=== PATIENT | male | born 1960 | race Caucasian/White ===

== ENCOUNTER 2019-12-04 15:24 | Emergency (ER) | payer OTHER, SELFPAY ==
[2019-12-04 15:28] VITALS: BP 148/94; PULSE 73; RESP 20; TEMP 36.6; O2SAT 96; BMI 27.6
--- NOTE | 2019-12-04 15:31 | XRR_ITS ---
PROCEDURE INFORMATION: Exam: XR Left Shoulder Exam date and time: 12/04/2019 3:48 PM Age: 59 years old Clinical indication: Injury or trauma; Injury history: Kicked in shoulder by cow; Initial encounter; Blunt trauma (contusions or hematomas; Left; Injury date: 12/04/19; Additional info: Left shoulder injury TECHNIQUE: Imaging protocol: XR Left shoulder. Views: 2 or more views. COMPARISON: No relevant prior studies available. FINDINGS: Bones/joints: There is severe degenerative changes of the acromioclavicular joint with a small osteochondral body along the superior aspect of the joint. Postoperative changes in the cervical spine with moderate to severe degenerative changes in the cervical and thoracic spine are noted. There are moderate degenerative changes of the glenohumeral joint. There is no acute fracture or dislocation. The acromioclavicular joint alignment is appropriate. The subacromial joint space is well-preserved. The glenohumeral joint is unremarkable. The visualized ribs are intact. Lungs: The visualized lung apex is clear. Soft tissues: No calcific tendinopathy. XR/XR shoulder LT min 2V* [id number] IMPRESSION: No acute bony abnormality. Degenerative changes are noted as above.
--- NOTE | 2019-12-04 16:55 | W.ED.EXTPRO ---
HPI - Extremity Problem General: Chief complaint: Extremity Injury, Upper Stated complaint: shoulder pain Time Seen by Provider: 12/04/19 16:29 History of Present Illness: HPI Narrative: Patient is a 59-year-old male comes to the ED with left shoulder pain. 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 He is currently having 10 out of 10 left shoulder pain. He is able to move shoulder fully but he is having some pain with range of motion. Associated symptoms: Deny chest pain, fever(s) or rash Review of Systems Const: Denies: fever(s), chills or fatigue Eyes: Denies: change in vision or eye discomfort ENMT: Denies: throat pain, odynophagia, nasal discharge or nasal congestion Card: Denies: chest pain, palpitations, edema, swelling of feet/ankles, dyspnea on exertion or orthopnea Resp: Denies: dyspnea, productive cough or non-productive cough GI: Denies: abdominal pain, nausea, vomiting, diarrhea, constipation or hematochezia : Denies: flank pain, difficulty urinating, dysuria or hematuria Musc: Reports: extremity pain (Left shoulder pain); Denies: neck pain, back pain or extremity swelling Skin/Breast: Denies: rash or new lesions Neuro: Denies: headache(s), numbness in extremities or weakness in extremities Physical Exam Const: COMMON NORMALS: patient oriented x3 and alert GENERAL APPEARANCE: cooperative HENMT: COMMON NORMALS: normocephalic HEAD & SCALP: normocephalic MOUTH: Normal oral and palatal mucosa present THROAT: posterior oropharynx normal and uvula midline Neck/C-Spine: COMMON NORMALS: supple GENERAL: Yes normal visual inspection Resp: COMMON NORMALS: normal respiratory effort, No retractions, No use of accessory muscles and clear to auscultation bilaterally AUSCULTATION: clear to auscultation bilaterally Cardio: COMMON NORMALS: regular rate, regular rhythm, S1 normal heart sound present, S2 normal heart sound present, No gallops present (Cardio), No clicks present (Cardio), No murmurs present (Cardio) and Peripheral pulses 2+ throughout RATE: regular rate RHYTHM: regular rhythm HEART SOUNDS: S1 normal heart sound present and S2 normal heart sound present PERIPHERAL PULSES: Peripheral pulses 2+ throughout GI: COMMON NORMALS: Normal to inspection, nondistended, normoactive bowel sounds present, Soft to palpation, non-tender and no masses PALPATION: Yes Soft to palpation : COMMON NORMALS: Yes no CVA tenderness BLADDER/KIDNEY EXAM: Yes no CVA tenderness Back/Pelvis: COMMON NORMALS: no CVA tenderness Extremity: GENERAL: Yes normal exam except as noted LEFT UPPER EXTREMITY: Yes shoulder joint Left shoulder joint: Yes inspection (No visual deformity seen. No no edema present.), Yes palpation (Tenderness over deltoid muscle), Yes ROM (full with some pain) and Yes neurovascular exam (intact) Neuro: COMMON NORMALS: patient oriented x3 and moves all extremities SENSORIUM/ORIENTATION: Yes alert Skin: COMMON NORMALS: no rashes or lesions noted GENERAL SKIN EXAM: no rashes or lesions noted and dry skin Course Vital Signs: Vital signs: Vital Signs Temperature 97.8 F 12/04/19 15:28 Pulse Rate 68 12/04/19 17:21 Respiratory Rate 14 12/04/19 17:21 Blood Pressure 148/92 12/04/19 17:21 Pulse Oximetry 97 12/04/19 17:21 MDM - Extremity (Nontraumatic) MDM Narrative: Medical decision making narrative: Patient is a 59-year-old male who comes to the ED with left shoulder pain. Patient had tenderness upon palpation of the deltoid muscle of the left arm/ shoulder with no visible deformities. X-ray of left shoulder showed no acute findings or fractures, but does show some degenerative joint changes. Patient diagnosed with contusion discharged. Follow-up with PCP in 5 to 7 days for reevaluation. Apply ice and take [id number] ibuprofen or Tylenol for pain. Patient understood and agreed with plan. Imaging Data^: Xray Ortho: Attestation: I personally reviewed and interpreted this imaging study as follows: Radiologist's impression: [address] [place] [address] XRay Report Signed Patient: Aren Perla Unit #: [id number] : 1960 Age/Sex: 59 / M ADM Date: 12/04/19 Loc: ER Room/Bed: Attending Dr: Ordering Provider/Ordering MD: Hilda Pruitt DO Date of Service: 12/04/19 Procedure(s): XR shoulder LT min 2V* [id number] Accession Number(s): [id number] Report Number: [id number] PROCEDURE INFORMATION: Exam: XR Left Shoulder Exam date and time: 12/04/2019 3:48 PM Age: 59 years old Clinical indication: Injury or trauma; Injury history: Kicked in shoulder by cow; Initial encounter; Blunt trauma (contusions or hematomas; Left; Injury date: 12/04/19; Additional info: Left shoulder injury TECHNIQUE: Imaging protocol: XR Left shoulder. Views: 2 or more views. COMPARISON: No relevant prior studies available. FINDINGS: Bones/joints: There is severe degenerative changes of the acromioclavicular joint with a small osteochondral body along the superior aspect of the joint. Postoperative changes in the cervical spine with moderate to severe degenerative changes in the cervical and thoracic spine are noted. There are moderate degenerative changes of the glenohumeral joint. There is no acute fracture or dislocation. The acromioclavicular joint alignment is appropriate. The subacromial joint space is well-preserved. The glenohumeral joint is unremarkable. The visualized ribs are intact. Lungs: The visualized lung apex is clear. Soft tissues: No calcific tendinopathy. XR/XR shoulder LT min 2V* [id number] IMPRESSION: No acute bony abnormality. Degenerative changes are noted as above. Dictated By: Gloria Edwards Signed By: Gloria Edwards Signed Date/Time: 12/04/191623 DD/ 1623 Discharge Plan Discharge Patient Disposition: Home Clinical Impression: Contusion Qualifiers: Encounter type: initial encounter Contusion area: shoulder Laterality: left Qualified Code(s): S40.012A - Contusion of left shoulder, initial encounter Condition: Stable Discharge Orders: Discharge Order (Routine); Ordered 12/04/19 Ordered By: Khoa Grady Referrals: Alena Mcguire APN [Primary Care Provider] - Discharge Diet: Regular Discharge Activity: Increase activity as tolerated Patient Instructions: Contusion in Adults (ED) Activity Restrictions/Additional Instructions: Follow-up with medical provider as directed in 5-7 days. Take ibuprofen and or tylenol for pain. Apply ice and rest left arm. Return to the ER or your medical provider if condition worsens. Please read and understand discharge instructions. If any questions, please ask. 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
[2019-12-04] MEDS: HYDROcodone-acetaminophen 7.5-325 mg Tablet 1 TAB PO (17:13)
[2019-12-04 17:21] VITALS: BP 148/92; PULSE 68; RESP 14; O2SAT 97
== END 2019-12-04 17:21 | disposition home or self-care (01) ==
PROVIDERS: Emergency Provider Physician Assistant; PCP Nurse Practitioner Family
DX: S40.012A Contusion of left shoulder, initial encounter (principal); W20.8XXA Other cause of strike by thrown, projected or falling object, initial encounter
CPT/HCPCS: 12345; 73030; 99281; 99283

== ENCOUNTER 2022-12-19 12:21 | Emergency (ER) | payer OTHER, SELFPAY ==
[2022-12-19 12:35] VITALS: BP 151/78; PULSE 66; RESP 16; TEMP 37.2; O2SAT 96; BMI 28.7
--- NOTE | 2022-12-19 12:58 | ED_ITS ---
HPI - Extremity Problem General: Chief complaint: Extremity Injury, Lower Stated complaint: Injurd ankle Time Seen by Provider: 12/19/22 12:47 Source: patient and family Mode of arrival: wheelchair Limitations: no limitations History of Present Illness: Patient presents to the emergency department with left ankle pain and swelling. He was out working at 3 AM this morning and fell in a hole and twisted his ankle. He also fell against his left shoulder. He did not hit his head or suffer a loss of consciousness. He denies pain or discomfort anywhere else. There was no syncope or prodrome it was a simple ground-level fall. He has had a prior left knee replacement but denies any hip or knee pain at this time. 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 MD Complaint: extremity pain Pain Consistency: constant Location: left and lower extremity Exacerbating factors: weight bearing Associated symptoms: Deny chest pain or fever(s) Review of Systems Const: Denies: fever(s) or chills Eyes: Denies: change in vision Card: Denies: chest pain, palpitations, syncope or pre-syncope GI: Denies: nausea, vomiting or diarrhea : Denies: flank pain, difficulty urinating or dysuria Musc: Reports: extremity pain and extremity swelling; Denies: neck pain or back pain Neuro: Denies: headache(s), numbness in extremities or weakness in extremities Physical Exam Narrative: EXAM NARRATIVE: Alert and in no active discomfort and less examined in his left lower extremity. Able to converse in complete and fluent sentences. Const: COMMON NORMALS: no acute distress, average body habitus, patient oriented x3 and alert GENERAL APPEARANCE: cooperative HENMT: COMMON NORMALS: normocephalic, atraumatic, moist oral mucous membranes and oropharynx normal HEAD & SCALP: normocephalic and atraumatic Eye: COMMON NORMALS: Equal, round and reactive pupils present, EOMs intact bilaterally and conjunctivae normal CONJUNCTIVA: Yes conjunctivae normal PUPIL: Yes Equal, round and reactive pupils present Neck/C-Spine: COMMON NORMALS: full ROM CERVICAL SPINE: Yes cervical ROM normal, No Cervical spine tenderness, No step off deformity, No Paracervical muscle tenderness, No Paracervical spasm and No Trapezius muscle tenderness Chest: COMMONS NORMALS: normal inspection of the chest and normal palpation of entire chest wall Resp: COMMON NORMALS: normal respiratory effort, No retractions, No use of accessory muscles and clear to auscultation bilaterally EFFORT & INSPECTION: Yes able to speak in complete sentences AUSCULTATION: clear to auscultation bilaterally Cardio: COMMON NORMALS: regular rate, regular rhythm and Peripheral pulses 2+ throughout RATE: regular rate RHYTHM: regular rhythm PERIPHERAL PULSES: Peripheral pulses 2+ throughout GI: COMMON NORMALS: Normal to inspection, nondistended, normoactive bowel sounds present : COMMON NORMALS: Yes no CVA tenderness BLADDER/KIDNEY EXAM: Yes no CVA tenderness Back/Pelvis: COMMON NORMALS: no CVA tenderness, thoracic and lumbar spine normal to inspection, no thoracic nor lumbar tenderness, thoraco-lumbar ROM normal and straight leg raise negative bilaterally Extremity: COMMON NORMALS: capillary refill normal and no calf tenderness LEFT UPPER EXTREMITY: Yes shoulder joint (Normal in appearance. Normal passive range of motion. Tenderness over the) LEFT LOWER EXTREMITY: Yes ankle joint (Left ankle is noted to be swollen tenderness over the lateral malleolus. T) Left ankle: Yes ROM (Limited) Neuro: COMMON NORMALS: patient oriented x3, moves all extremities, no focal motor deficits and no sensory deficits noted SENSORIUM/ORIENTATION: Yes alert Psych: COMMON NORMALS: mental status grossly normal Skin: COMMON NORMALS: no rashes or lesions noted, no wounds and turgor normal GENERAL SKIN EXAM: no rashes or lesions noted and turgor normal Course Reevaluation(s): Reevaluation #1: Discussed findings, plan of care, follow-up with patient and spouse. We will make arrangements to have a wheeled scooter to keep him in a nonweightbearing status. Time: 14:33 Consultations: Consultation #1: Discussed case with Dr. Dial who will follow up as an outpatient. He made immobilization recommendations as well. Time: 14:08 Vital Signs: Vital signs: Vital Signs Temperature 99.0 F 12/19/22 12:35 Pulse Rate 66 12/19/22 12:35 Respiratory Rate 16 12/19/22 12:35 Blood Pressure 151/78 12/19/22 12:35 Pulse Oximetry 96 12/19/22 12:35 Oxygen Delivery Me thod Room Air 12/19/22 12:35 MDM - Extremity (Nontraumatic) Medical Decision Making Patient with a ground-level fall from stepping in a hole earlier this morning presented to the emergency department because of ankle pain, swelling, inability to bear weight. There was also some question of whether he had injured his left shoulder as he had pain in his shoulder. Ankle examination revealed normal range of motion at the left glenohumeral joint without any evidence of obvious deformity or other abnormality other than some tenderness over the lateral soft tissue of the upper extremity. Radiographs were obtained which were reassuring other than degenerative joint disease. He had also concomitant swelling and tenderness of the left ankle. He was neurovascular intact. Radiographs revealed evidence of decreased Boehler's angle consistent with an intra- articular fracture. Consult Tatian with foot and ankle surgeon Dr. Dial was obtained. We recommend immobilization and strict nonweightbearing and he will follow him in the outpatient clinic for operative repair. Lab Data I reviewed the patient's lab results. Radiology Impressions Ankle X-Ray 12/19/22 12:59 IMPRESSION: Evidence of intra-articular calcaneal fracture. Shoulder X-Ray 12/19/22 12:59 IMPRESSION: 1. No acute findings. 2. Mild left shoulder degenerative changes. 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 Dial. We have provided pain medication to use as needed. Coding Level of Care Code ED Group Segment Consultant for Loan Castellon
--- NOTE | 2022-12-19 12:59 | XRR_ITS ---
PROCEDURE INFORMATION: Exam: XR Left Shoulder Exam date and time: 12/19/2022 1:08 PM Age: 62 years old Clinical indication: Injury or trauma; Fall; Blunt trauma (contusions or hematomas); Shoulder; Left TECHNIQUE: Imaging protocol: Radiologic exam of the left shoulder. Views: 2 or more views. COMPARISON: 1. CR XR shoulder LT min 2V* [id number] 12/04/2019 3:34 PM 2. CR XR chest 2V* [id number] 04/29/2016 1:44 PM FINDINGS: Bones/joints: No acute fracture or dislocation. Mild degenerative changes of the acromioclavicular and glenohumeral joints. [id number] spinal dextroconvex curvature. Mild spinal degenerative changes. Cervical spine fusion hardware. Soft tissues: Unremarkable. XR/XR shoulder LT min 2V* [id number] IMPRESSION: 1. No acute findings. 2. Mild left shoulder degenerative changes.
--- NOTE | 2022-12-19 12:59 | XRR_ITS ---
PROCEDURE INFORMATION: Exam: XR Left Ankle Exam date and time: 12/19/2022 1:08 PM Age: 62 years old Clinical indication: Injury or trauma; Fall; Blunt trauma; Ankle; Left; Additional info: Inversion TECHNIQUE: Imaging protocol: Radiologic exam of the left ankle. Views: 3 or more views. COMPARISON: No relevant prior studies available. FINDINGS: Bones/joints: Cortical disruption at the posterior calcaneus and linear lucencies as well as sclerotic bands at the calcaneus. Decreased Bohler angle. Joint spacing and alignment are maintained. Soft tissues: Soft tissue edema about the imaged lower leg and ankle. Vasculature: Mild peripheral vascular calcifications. XR/XR ankle LT min 3V* [id number] IMPRESSION: Evidence of intra-articular calcaneal fracture.
[2022-12-19] MEDS: HYDROcodone-acetaminophen 7.5-325 mg Tablet 1 TAB PO (13:13)
[2022-12-19 15:05] VITALS: BP 139/84; PULSE 67; RESP 16; O2SAT 92
--- NOTE | 2022-12-21 07:44 | DCPLANNER ---
Addendum entered by Usha Bar 12/23/22 11:43: Patient had a follow up appointment scheduled with podiatry - patient did attend appointment. Original Note: merchandise team manager had message to schedule a follow up appointment for patient with podiatry. merchandise team manager sent patients information to the front office staff at podiatry. Patients information will be printed and reviewed. Clinic will call patient with appointment information.
== END 2022-12-19 15:47 | disposition home or self-care (01) ==
PROVIDERS: Emergency Provider Emergency Medicine; PCP Nurse Practitioner Family
DX: S92.062A Displaced intraarticular fracture of left calcaneus, initial encounter for closed fracture (principal); W18.42XA Slipping, tripping and stumbling without falling due to stepping into hole or opening, initial encounter
CPT/HCPCS: 29515; 73030; 73610; 99283

== ENCOUNTER 2022-12-22 15:46 | Outpatient (CLI) | payer OTHER, SELFPAY | END 2022-12-22 15:47 | disposition home or self-care (01) | LOC: SPT 15:46 | PROVIDERS: PCP Nurse Practitioner Family; Visit Provider Podiatrist Foot & Ankle Surgery | DX: Z46.89 Encounter for fitting and adjustment of other specified devices (principal); S92.002D Unspecified fracture of left calcaneus, subsequent encounter for fracture with routine healing; X58.XXXD Exposure to other specified factors, subsequent encounter | CPT/HCPCS: 97760; L4361 ==

== ENCOUNTER → 2023-01-04 11:08 | Outpatient (BNVA) | payer OTHER, SELFPAY | PROVIDERS: PCP Nurse Practitioner Family; Visit Provider Podiatrist Foot & Ankle Surgery | DX: S92.015A Nondisplaced fracture of body of left calcaneus, initial encounter for closed fracture; W17.2XXA Fall into hole, initial encounter | CPT/HCPCS: 73650 ==

== ENCOUNTER → 2023-01-19 13:57 | Outpatient (BNVA) | payer OTHER, SELFPAY | PROVIDERS: PCP Nurse Practitioner Family; Visit Provider Podiatrist Foot & Ankle Surgery | DX: S92.015D Nondisplaced fracture of body of left calcaneus, subsequent encounter for fracture with routine healing; B35.3 Tinea pedis; W17.2XXD Fall into hole, subsequent encounter | CPT/HCPCS: 73650 ==

== ENCOUNTER → 2023-02-01 14:25 | Outpatient (BNVA) | payer OTHER, SELFPAY | PROVIDERS: PCP Nurse Practitioner Family; Visit Provider Podiatrist Foot & Ankle Surgery | DX: B35.3 Tinea pedis; S92.062D Displaced intraarticular fracture of left calcaneus, subsequent encounter for fracture with routine healing; X58.XXXD Exposure to other specified factors, subsequent encounter | CPT/HCPCS: 73650 ==

== ENCOUNTER → 2023-02-17 15:34 | Outpatient (BNVA) | payer OTHER, SELFPAY | PROVIDERS: PCP Nurse Practitioner Family; Visit Provider Podiatrist Foot & Ankle Surgery | DX: B35.3 Tinea pedis; S92.015D Nondisplaced fracture of body of left calcaneus, subsequent encounter for fracture with routine healing; X58.XXXD Exposure to other specified factors, subsequent encounter | CPT/HCPCS: 73650 ==